=== PATIENT | female | born 1945 | race Caucasian/White ===

== ENCOUNTER → 2017-10-10 09:01 | Outpatient (CLI) | payer MEDICARE, SELFPAY ==
--- NOTE | 2017-10-10 | DI.MG.S_ITS ---
BILATERAL DIGITAL SCREENING MAMMOGRAM 3D/2D WITH CAD: 10/10/2017 CLINICAL: Routine screening. Comparison is made to exams dated: 10/08/2016 mammogram, 10/06/2015 mammogram, and 08/16/2014 mammogram - [facility]. The tissue of both breasts is heterogeneously dense. This may lower the sensitivity of mammography. Current study was also evaluated with a Computer Aided Detection (CAD) system. No significant masses, calcifications, or other findings are seen in either breast. There has been no significant interval change. IMPRESSION: NEGATIVE There is no mammographic evidence of malignancy. A 1 year screening mammogram is recommended. This exam was interpreted at Station ID: [id number]. NOTE: For mammograms, a report in lay terms will be sent to the patient. Approximately 15% of breast malignancies will not be visualized mammographically. In the management of a palpable breast mass, a negative mammogram must not discourage biopsy of a clinically suspicious lesion. Electronically Signed By: Jamal maza/grabiel:10/11/2017 08:40:02 copy to: Jed Caal letter sent: Normal Exam ACR BI-RADS Category 1: Negative 3341F
== END ==
PROVIDERS: PCP Family Medicine; Visit Provider Family Medicine
DX: Z12.31 Encounter for screening mammogram for malignant neoplasm of breast (principal)
CPT/HCPCS: 77063; 77067

== ENCOUNTER 2018-04-30 22:55 | Emergency (ER) | payer MEDICARE, SELFPAY ==
[2018-04-30 22:59] VITALS: BP 134/77; PULSE 64; RESP 15; TEMP 36.3; O2SAT 96; BMI 32.1
--- NOTE | 2018-05-01 00:46 | DI.CT.S_ITS ---
PROCEDURE: CT HEAD/BRAIN WO CON INDICATIONS: right sided face and arm tingling TECHNIQUE: Noncontrast 4.5 mm thick angled axial sections acquired from the foramen magnum to the vertex, with coronal and sagittal reformats. For radiation dose reduction, the following was used: automated exposure control, adjustment of mA and/or kV according to patient size. COMPARISON: None. FINDINGS: Image quality: Excellent. CSF spaces: Basal cisterns are patent. No extra-axial fluid collections. The ventricles are symmetric in size and shape. Brain: No intracranial bleeds or masses. There is cerebral volume loss for age, with resultant ventricular and sulcal prominence. There are periventricular and deep white matter chronic small vessel ischemic changes. There is intracranial internal carotid artery atherosclerosis. Skull and face: Calvarium and visualized facial bones appear intact, without suspicious lesions. Sinuses: Visualized sinuses and mastoids are clear. IMPRESSION: No acute intracranial process. Dictated by: Branden Mera M.D. on 05/01/2018 at 7:47 Approved by: Branden Mera M.D. on 05/01/2018 at 7:48
--- NOTE | 2018-05-01 00:52 | ED_ITS ---
HPI - Neck Pain/Injury General Chief Complaint: Neck Pain/Injury Stated Complaint: tingling right side of body and neck Time Seen by Provider: 05/01/18 00:36 Source: patient Mode of arrival: ambulatory Limitations: no limitations History of Present Illness HPI Narrative: patient is a 72-year-old female presents with right-sided neck discomfort and right arm tingling. She says she did shovel snow earlier in the day but does not remember injuring herself. This evening she was watching TV and at around 9 or 930 she started having tingling in her right arm and felt like her neck was weird. She had some tingling along the right side of her face as well. No arm weakness is no facial droop or difficulty speaking. She says the symptoms have resolved but she sometimes still feels like a tingling and burning sensation in her right arm. No history of TIA or CVA in the past. pain is not reproducible with movement. Related Data Home Medications Medication Instructions Recorded Confirmed ACETAMINOPHEN (#TYLENOL ARTHRITIS) 1,300 mg PO BID #0 04/11/11 01/27/18 ASPIRIN (#ASPIR 81) 81 mg PO Q DAY #0 04/11/11 01/27/18 CA PANTOTHENATE/FOLIC ACID/VIT 1 tab PO Q DAY #0 04/11/11 01/27/18 (MULTIVITAMIN) LOVASTATIN (#MEVACOR) 10 mg PO QDAY #0 04/11/11 01/27/18 [VITAMIN D] Q DAY #0 04/11/11 01/27/18 lisinopril 10 mg PO Q DAY #0 04/19/11 01/27/18 Previous Rx's Medication Instructions Recorded estradiol [Estrace] 1 mg PO Q DAY #90 tab 02/05/17 [PROGESTERONE] 50 mg PO Q DAY #90 06/06/17 Allergies Allergy/AdvReac Type Severity Reaction Status Date / Time adhesive Allergy Unknown Verified 04/30/18 22:59 hydrocodone Allergy Unknown Verified 04/30/18 22:59 morphine Allergy Unknown Verified 04/30/18 22:59 naproxen Allergy Unknown Verified 04/30/18 22:59 thimerosal Allergy Unknown Verified 04/30/18 22:59 oxycodone AdvReac Mild NAUSEA, Verified 04/30/18 22:59 DIZZINESS Review of Systems Review of Systems ROS Unobtainable: All systems reviewed & are unremarkable except as noted in HPI and below Constitutional Denies chills, Denies fever(s), Denies lethargy and Denies weakness Eyes Denies change in vision, Denies eye discharge, Denies irritation and Denies loss of vision ENT Ears, Nose, Mouth, and Throat: Denies change in voice, Denies vertigo, Denies dizziness, Reports neck pain and Denies sore throat Cardiovascular Denies chest pain, Denies irregular heart rhythm, Denies lightheadedness, Denies palpitations, Denies dyspnea, Denies dyspnea on exertion and Denies orthopnea Respiratory Denies cough, Denies dyspnea, Denies dyspnea on exertion and Denies wheezing Gastrointestinal Gastrointestinal: Denies abdominal pain, Denies change in bowel habits, Denies diarrhea, Denies nausea and Denies vomiting Musculoskeletal Reports as per HPI, Denies back pain, Reports neck pain, Reports numbness, Reports radiating pain into limb ( right armright arm) and Reports tingling Integumentary/Breasts Denies pruritus, Denies erythema, Denies rash and Denies wounds Neurologic Denies vertigo, Denies dizziness, Denies loss of vision, Reports numbness, Reports tingling and Denies weakness Endocrine Denies palpitations Allergic/Immunologic Denies wheezing [facility] Medical History Arthritis (Chronic) Asthma (Chronic) GERD (gastroesophageal reflux disease) (Chronic) Hayfever (Chronic) Scoliosis (Chronic) Chicken pox (Resolved) Measles (Resolved) Mumps (Resolved) Surgical History Anesthesia (Resolved) History of arthroscopic knee surgery (Resolved) History of carpal tunnel repair (Resolved) History of colonoscopy (Resolved 04/26/06) History of hip replacement (Resolved 2012) History of knee replacement (Resolved 2002) History of left cataract surgery (Resolved 01/27/14) History of right cataract surgery (Resolved 02/03/14) Status post breast biopsy (Resolved) Status post bunionectomy (Resolved 2008) Status post hammer toe correction (Resolved 05/11/02) Status post rotator cuff repair (Resolved 2012) Social History Smoking Status: Former smoker Social History Smoking Status: Former smoker Exam Initial Vital Signs Initial Vital Signs: Vital Signs Temperature 97.4 F L 04/30/18 22:59 Pulse Rate 64 04/30/18 22:59 Respiratory Rate 15 04/30/18 22:59 Blood Pressure 134/77 04/30/18 22:59 Pulse Oximetry 96 04/30/18 22:59 GENERAL: Alert well-appearing female sitting in gurney no acute distress HEENT: Head atraumatic,EOMI, pupils reactive, face symmetric, NECK: no vertebral tenderness no is paraspinal muscle tenderness. Full range of motion of neck. Pain is not reproducible with palpation or movement. CARDIOVASCULAR: Regular rate and rhythm without murmurs, rubs or gallops. RESPIRATORY: Breath sounds equal bilaterally, no wheezes rales or rhonchi. ABDOMEN: Soft, nontender. Normoactive bowel sounds all 4 quadrants. No guarding or rebound. EXTREMITIES: Normal range of motion, no clubbing or edema. Neurovascularly intact NEUROLOGICAL: Alert and oriented x4.Normal gait and speech. Cranial nerves II through XII grossly intact. Good vgexmc-gf-vupl, good otjs-mh-stro, strength equal bilaterally, no dysarthria or aphasia, sensation in tact to soft touch bilaterally, no visual changes, no facial droop SKIN: Warm, dry, no laceration, no petechiae, no rashes or lesions. Scores NIH Stroke Scale Level of Conciousness: Alert, keenly responsive Ask month/age: Answers both questions correctly. Open/close eyes, close hand: Performs both tasks correctly Best gaze horizontal: Normal Visual metz: No visual loss Facial palsy: Normal symetrical movement Left arm drift: No drift for full 10 sec Right arm drift: No drift for full 10 sec Left leg drift: No drift for full 10 sec Right leg drift: No drift for full 10 sec Limb ataxia: Absent Sensory on face/arms/legs: Normal, no sensory loss Best language: No aphasia, normal Dysarthria: Normal Extinction or inattention: No abnormality Total NIH Stroke scale score: 0 Course Orders Ordered: ED Orders 05/01/18 00:46 CT head/brain wo con Stat Complete Blood Count AUTO DIFF Stat Comprehensive Metabolic Panel Stat Troponin & CK Cardiac Panel Stat EKG-12 Lead Stat Vital Signs - 8 hr 04/30/18 22:59 05/01/18 01:58 Temperature 97.4 F L Pulse Rate 64 76 Respiratory Rate 15 20 Blood Pressure 134/77 164/64 H Pulse Oximetry 96 98 MDM - Neck Pain/Injury Lab Data Attestation: I reviewed the patient's lab results. Result diagrams: 05/01/18 00:46 05/01/18 00:46 Lab Results 05/01/18 05/01/18 Range/Units 00:46 00:46 WBC 4.9 (4.5-11.0) X10^3/uL RBC 4.37 (4.0-5.2) X10^6/uL Hgb 13.7 (12.0-16.0) g/dL Hct 40.8 (36-46) % MCV 93.5 (80-100) fL MCH 31.4 (26-34) PG MCHC 33.6 (30-36) % RDW 13.9 (11.6-14.8) % Plt Count 180 (150-400) X10^3/uL Neut % (Auto) 57.2 (50-75) % Lymph % (Auto) 23.5 L (25-40) % [place] % (Auto) 14.1 H (3-14) % Eos % (Auto) 3.7 (2-4) % Baso % (Auto) 1.5 (0-2) % Neut # (Auto) 2800 (3953-2599) /uL Lymph # (Auto) 1100 (6130-9055) /uL [place] # (Auto) 700 (0-900) /uL Eos # (Auto) 200 (0-450) /uL Baso # (Auto) 100 (0-100) /uL Sodium 141 (137-145) mmol/L Potassium 4.1 (3.4-5.1) mmol/L Chloride 108 H (98-107) mmol/L Carbon Dioxide 24 (22-32) mmol/L BUN 15 (7-17) mg/dL Creatinine 0.80 (0.52-1.04) mg/dL Estimated GFR > 60.0 (>60) mL/min BUN/Creatinine Ratio 18.8 (6-22) Glucose 118 H (80-110) mg/dL Calcium 9.1 (8.4-10.2) mg/dL Total Bilirubin 0.6 (0.2-1.3) mg/dL AST 26 (14-36) IU/L ALT 33 (9-52) IU/L Alkaline Phosphatase 60 (38-126) U/L Total Creatine Kinase 168 H (30-135) U/L CK-MB (CK-2) 1.88 (<2.37) ng/mL CK-MB (CK-2) Rel Index 1.1 L (1.5-5.0) % Troponin I < 0.012 (0.01-0.034) ng/mL Total Protein 7.6 (6.3-8.2) g/dL Albumin 4.1 (3.5-5.0) g/dL Globulin 3.5 (1.7-4.1) g/dL Albumin/Globulin Ratio 1.2 (1.0-2.8) Imaging Data CT scan - head: 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 It does sound more like neuropathy. She really has no focal deficits or weakness and right side. Of blood work and head CT are reassuring. Discussed results with patient. At this time follow up with PCP. Discharge Plan Departure Patient Disposition: Home Clinical Impression: Peripheral neuropathy Qualifiers: Peripheral neuropathy type: polyneuropathy, unspecified Qualified Code(s): G62.9 - Polyneuropathy, unspecified Discharge Date/Time: 05/01/18 01:59 Interventions: ED Discharge Assessment Last Done: 05/01/18 01:58 Instructions: Peripheral Neuropathy Activity Restrictions/Additional Instructions: *You have been diagnosed with peripheral neuropathy *What to do: at this time symptoms are consistent with a nerve problem. Possibly from over working in hurting neck.. Increase activity as tolerated. may require further testing with her primary doctor *Continue to take medications as directed *Follow up with your primary care provider in 2-3 days *Return to ER if you should have weakness, facial droop difficulty speaking vision changes or any new, worsening or concerning symptoms Prescriptions: No Action CA PANTOTHENATE/FOLIC ACID/VIT (MULTIVITAMIN) 1 tab PO Q DAY Qty: 0 RF: 0 ACETAMINOPHEN (#TYLENOL ARTHRITIS) 1,300 mg PO BID Qty: 0 RF: 0 ASPIRIN (#ASPIR 81) 81 mg PO Q DAY Qty: 0 RF: 0 LOVASTATIN (#MEVACOR) 10 mg PO QDAY Qty: 0 RF: 0 [VITAMIN D] Q DAY Qty: 0 RF: 0 lisinopril 10 MG tablet 10 mg PO Q DAY Qty: 0 RF: 0 estradiol [Estrace] 1 MG tablet 1 mg PO Q DAY Qty: 90 RF: 1 [PROGESTERONE] 50 mg PO Q DAY Qty: 90 RF: 3 Referrals: Beau Iniguez MD [Primary Care Provider] -
[2018-05-01 01:02] LABS: Add Manual Diff / Slide Review NO; Basophils Absolute Auto 100 /uL (0-100); Basophils Percent Auto 1.5 % (0-2); Eosinophils Absolute Auto 200 /uL (0-450); Eosinophils Percent Auto 3.7 % (2-4); Hematocrit 40.8 % (36-46); Hemoglobin 13.7 g/dL (12.0-16.0); Lymphocytes Absolute Auto 1100 /uL (1100-4500); Lymphocytes Percent Auto 23.5 % (25-40); Mean Corpuscular HGB Conc 33.6 % (30-36); Mean Corpuscular Hemoglobin 31.4 PG (26-34); Mean Corpuscular Volume 93.5 fL (80-100); Monocytes Absolute Auto 700 /uL (0-900); Monocytes Percent Auto 14.1 % (3-14); Neutrophils Absolute Auto 2800 /uL (1500-7000); Neutrophils Percent Auto 57.2 % (50-75); Platelet Count 180 X10^3/uL (150-400); Red Blood Cell Count 4.37 X10^6/uL (4.0-5.2); Red Cell Distribution Width 13.9 % (11.6-14.8); White Blood Cell Count 4.9 X10^3/uL (4.5-11.0)
[2018-05-01 01:09] LABS: Alanine Aminotransferase 33 IU/L (9-52); Albumin 4.1 g/dL (3.5-5.0); Albumin Globulin Ratio 1.2 (1.0-2.8); Alkaline Phosphatase 60 U/L (38-126); Aspartate Aminotransferase 26 IU/L (14-36); BUN Creatinine Ratio 18.8 (6-22); Bilirubin Total 0.6 mg/dL (0.2-1.3); Blood Urea Nitrogen 15 mg/dL (7-17); Calcium 9.1 mg/dL (8.4-10.2); Carbon Dioxide 24 mmol/L (22-32); Chloride 108 mmol/L (98-107); Creatine Kinase 168 U/L (30-135); Estimated Glomerular Filt Rate > 60.0 mL/min (>60); Globulin 3.5 g/dL (1.7-4.1); Glucose 118 mg/dL (80-110); HEMOLYSIS < 15 (0-50); Potassium 4.1 mmol/L (3.4-5.1); Sodium 141 mmol/L (137-145); Total Protein 7.6 g/dL (6.3-8.2)
[2018-05-01 01:21] LABS: Troponin I < 0.012 ng/mL (0.01-0.034)
[2018-05-01 01:25] LABS: CKMB % Relative Index 1.1 % (1.5-5.0); Creatine Kinase MB 1.88 ng/mL (<2.37)
[2018-05-01 01:58] VITALS: BP 164/64; PULSE 76; RESP 20; O2SAT 98
--- NOTE | 2018-05-01 02:28 | PC.NURSE ---
HER DISCHARGE VITALS WERE ENTERED WRONG BY ME.THE CORRECT VITALS WERE B/P126/70,HR 54,RR 20,SAO2 96 PER CENT ON RA.
== END 2018-05-01 01:59 | disposition home or self-care (01) ==
PROVIDERS: Emergency Provider Emergency Medicine; PCP Family Medicine
DX: G62.9 Polyneuropathy, unspecified (principal)
CPT/HCPCS: 36591; 70450; 80053; 82550; 82553; 84484; 85025; 93005; 99283; 99285

== ENCOUNTER → 2018-10-14 10:32 | Outpatient (CLI) | payer MEDICARE, SELFPAY ==
--- NOTE | 2018-10-14 | DI.MG.S_ITS ---
BILATERAL DIGITAL SCREENING MAMMOGRAM 3D/2D WITH CAD: 10/14/2018 CLINICAL: Routine screening. Comparison is made to exams dated: 10/10/2017 mammogram, 10/08/2016 mammogram, and 10/06/2015 mammogram - [facility]. The tissue of both breasts is heterogeneously dense. This may lower the sensitivity of mammography. Current study was also evaluated with a Computer Aided Detection (CAD) system. No significant masses, calcifications, or other findings are seen in either breast. There has been no significant interval change. IMPRESSION: NEGATIVE There is no mammographic evidence of malignancy. A 1 year screening mammogram is recommended. This exam was interpreted at Station ID: [id number]. NOTE: For mammograms, a report in lay terms will be sent to the patient. Approximately 15% of breast malignancies will not be visualized mammographically. In the management of a palpable breast mass, a negative mammogram must not discourage biopsy of a clinically suspicious lesion. Electronically Signed By: Juliane almendarez/grabiel:10/14/2018 12:52:13 copy to: Jed Caal letter sent: Normal Exam ACR BI-RADS Category 1: Negative 3341F
== END ==
PROVIDERS: PCP Family Medicine; Visit Provider Family Medicine
DX: Z12.31 Encounter for screening mammogram for malignant neoplasm of breast (principal)
CPT/HCPCS: 77063; 77067

== ENCOUNTER 2019-03-09 14:08 | Emergency (ER) | payer MEDICARE, SELFPAY ==
[2019-03-09 14:31] VITALS: BP 134/76; PULSE 69; RESP 14; TEMP 36.4; O2SAT 98
--- NOTE | 2019-03-09 14:40 | DI.RAD.S_ITS ---
PROCEDURE: XR WRIST LT MIN 3V INDICATIONS: atraumatic pain TECHNIQUE: 3 views of the wrist were acquired. COMPARISON: None. FINDINGS: Bones: No acute fracture or dislocation. There is severe loss of joint space, osteophytic spurring, and periarticular sclerosis at the 1st carpometacarpal joint. Scaphoid view: Scaphoid appears intact. Soft tissues: No suspicious soft tissue calcifications. IMPRESSION: Irregular appearance of the left 1st carpometacarpal joint most consistent with severe degenerative change, although infectious findings/osteomyelitis could appear similar. Correlation with point tenderness suggested. Dictated by: Edin Brink M.D. on 03/09/2019 at 14:52 Approved by: Edin Brink M.D. on 03/09/2019 at 15:00
[2019-03-09 16:40] VITALS: BP 143/65; PULSE 60; RESP 14; O2SAT 96
[2019-03-09] MEDS: KETOROLAC 60 MG/2 ML VIAL 30 MG IM (17:20)
--- NOTE | 2019-03-09 20:06 | ED_ITS ---
HPI - Extremity Problem <ROSA Pepper - Last Filed: 03/09/19 20:11> General Chief complaint: Extremity Problem,Nontraumatic Stated complaint: left wrist cant put pressure on it and hot to touc Time Seen by Provider: 03/09/19 16:39 Source: patient Mode of arrival: Ambulatory Limitations: no limitations History of Present Illness HPI Narrative: The patient is a 73-year-old female former smoker with history of arthritis who presents with a chief complaint of left wrist pain. She states that her wrist hurts just distal on the ulnar side. She states it started this morning. She denies any fevers nausea vomiting or diarrhea. She states that there was slight redness earlier, but nothing now. She has not taken anything for pain other than 400 mg of ibuprofen orally this morning. She denies any falls or trauma. She denies any injuries. Related Data Home Medications Medication Instructions Recorded Confirmed Vitamin D3 1 cap PO DAILY #0 04/11/11 03/09/19 acetaminophen [Tylenol Arthritis 1,300 mg PO QAM #0 04/11/11 03/09/19 Pain] multivitamin 1 tab PO DAILY #0 04/11/11 03/09/19 lisinopril 10 mg PO DAILY #0 04/19/11 03/09/19 estradiol [Estrace] 1 mg PO DAILY 03/09/19 03/09/19 fluticasone propionate [Flovent 2 puff INHALATION BID 03/09/19 03/09/19 HFA] lovastatin 40 mg PO DAILY 03/09/19 03/09/19 pantoprazole 40 mg PO Q OTHER DAY 03/09/19 03/09/19 Previous Rx's Medication Instructions Recorded [PROGESTERONE] 50 mg PO Q DAY #90 06/06/17 Allergies Allergy/AdvReac Type Severity Reaction Status Date / Time adhesive Allergy Unknown Verified 03/09/19 14:35 hydrocodone Allergy Unknown Verified 03/09/19 14:35 morphine Allergy Unknown Verified 03/09/19 14:35 naproxen Allergy Unknown Verified 03/09/19 14:35 thimerosal Allergy Unknown Verified 03/09/19 14:35 oxycodone AdvReac Mild NAUSEA, Verified 03/09/19 14:35 DIZZINESS Review of Systems <ROSA Pepper - Last Filed: 03/09/19 20:11> Review of Systems Narrative: GENERAL: Denies chills, fatigue, malaise, fever, sweats. HEENT: Denies sinus pain, ear pain, sore throat, difficulty swallowing, dizziness. RESPIRATORY: Denies dyspnea, cough, wheezing, hemoptysis, sputum. CARDIOVASCULAR: Denies chest pain, palpitations, orthopnea, edema, GASTROINTESTINAL: Denies nausea, vomiting, abdominal pain, diarrhea, c onstipation, melena. : Denies dysuria, frequency, incontinence, hematuria, urinary retention. MUSCULOSKELETAL: See HPI SKIN: See HPI NEUROLOGIC: Denies weakness, headache, numbness, change in speech, confusion, seizures, incoordination. PSYCHIATRIC: No concerning psychosocial issues. 12 point review of systems is negative except for those stated above Patient History <ROSA Pepper - Last Filed: 03/09/19 20:11> Medical History (Updated 03/09/19 @ 19:00 by ROSA Pepper) Arthritis (Chronic) Asthma (Chronic) Chicken pox (Resolved) GERD (gastroesophageal reflux disease) (Chronic) Hayfever (Chronic) Measles (Resolved) Mumps (Resolved) Scoliosis (Chronic) Uterine fibroid (Acute) Surgical History (Updated 01/23/18 @ 16:06 by Joanna Roa) Anesthesia (Resolved) History of arthroscopic knee surgery (Resolved) History of carpal tunnel repair (Resolved) History of colonoscopy (Resolved 04/26/06) History of hip replacement (Resolved 2012) History of knee replacement (Resolved 2002) History of left cataract surgery (Resolved 01/27/14) History of right cataract surgery (Resolved 02/03/14) Status post breast biopsy (Resolved) Status post bunionectomy (Resolved 2008) Status post hammer toe correction (Resolved 05/11/02) Status post rotator cuff repair (Resolved 2012) Social History Smoking Status: Former smoker Smoking Status: Former smoker alcohol intake frequency: holidays/special occasions only Substance Use Type: does not use Exam <ROSA Pepper - Last Filed: 03/09/19 20:11> Narrative Exam Narrative: General: Obese female in no acute distress HEAD: Atraumatic. Normocephalic. No temporal or scalp tenderness. EYES: Pupils equal round and reactive. Extraocular motions intact. No scleral icterus. No injection or drainage. ENT: Nose without bleeding, purulent drainage or septal hematoma. Throat without erythema, tonsillar hypertrophy or exudate. Uvula midline. Airway patent. NECK: Trachea midline. No JVD or lymphadenopathy. Supple, nontender, no meningeal signs. CARDIOVASCULAR: Regular rate and rhythm RESPIRATORY: No cough. No increased respiratory effort. No accessory muscle use. EXTREMITIES: Pain to palpation of ulnar aspect of left wrist. No snuffbox tenderness to palpation. Good strength left hand. Positive radial pulse left wrist. Able thumbs up, thumbs down, make a [place] with hands. Able to pronate and supinate left wrist. BACK: Nontender without deformity or crepitance. No flank tenderness. NEURO: AOx3. SKIN: No laceration abrasion erythema or ecchymosis noted over left wrist Initial Vital Signs Initial Vital Signs: Vital Signs Temperature 97.6 F 03/09/19 14:31 Pulse Rate 69 03/09/19 14:31 Respiratory Rate 14 03/09/19 14:31 Blood Pressure 134/76 03/09/19 14:31 Pulse Oximetry 98 03/09/19 14:31 <Alesha Duran DO - Last Filed: 03/11/19 07:14> Initial Vital Signs Initial Vital Signs: Vital Signs Temperature 97.6 F 03/09/19 14:31 Pulse Rate 69 03/09/19 14:31 Respiratory Rate 14 03/09/19 14:31 Blood Pressure 134/76 03/09/19 14:31 Pulse Oximetry 98 03/09/19 14:31 Course <ROSA Pepper - Last Filed: 03/09/19 20:11> Orders Ordered: Discontinued Medications Ketorolac Tromethamine (Toradol) 30 mg IM NOW ONE Stop: 03/09/19 17:15 Last Admin: 03/09/19 17:20 Dose: 30 mg Documented by: MATTHEW Vital Signs Vital signs: Vital Signs - 8 hr 03/09/19 14:31 03/09/19 16:40 Temperature 97.6 F Pulse Rate 69 60 Respiratory Rate 14 14 Blood Pressure 134/76 Blood Pressure [Right Arm] 143/65 H Pulse Oximetry 98 96 <DO Jessica Horan Last Filed: 03/11/19 07:14> Orders Ordered: Discontinued Medications Ketorolac Tromethamine (Toradol) 30 mg IM NOW ONE Stop: 03/09/19 17:15 Last Admin: 03/09/19 17:20 Dose: 30 mg Documented by: MATTHEW Vital Signs Vital signs: Vital Signs - 8 hr 03/09/19 14:31 03/09/19 16:40 Temperature 97.6 F Pulse Rate 69 60 Respiratory Rate 14 14 Blood Pressure 134/76 Blood Pressure [Right Arm] 143/65 H Pulse Oximetry 98 96 MDM - Extremity (Nontraumatic) <ROSA Pepper - Last Filed: 03/09/19 20:11> Imaging Data Extremity x-ray #1: Radiologist's Impression: [address] [address] XRay Report Signed Patient: Allie Lange JMR#: [id number] : 8Acct:[id number] Age/Sex: 73 / FDate of Service: 03/09/19 Loc: ED Accession Number: [id number] Procedure: XR wrist LT min 3V Ordering Provider: Tasneem Gaxiola PROCEDURE: XR WRIST LT MIN 3V INDICATIONS: atraumatic pain TECHNIQUE: 3 views of the wrist were acquired. COMPARISON: None. FINDINGS: Bones: No acute fracture or dislocation. There is severe loss of joint space, osteophytic spurring, and periarticular sclerosis at the 1st carpometacarpal joint. Scaphoid view: Scaphoid appears intact. Soft tissues: No suspicious soft tissue calcifications. IMPRESSION: Irregular appearance of the left 1st carpometacarpal joint most consistent with severe degenerative change, although infectious findings/osteomyelitis could appear similar. Correlation with point tenderness suggested. Dictated by: Edin Brink M.D. on 03/09/2019 at 14:52 Approved by: Edin Birnk M.D. on 03/09/2019 at 15:00 [facility] Narrative Medical decision making narrative: The patient is a 73-year-old female who presents with a chief complaint of wrist pain that is atraumatic. X-ray is concerning for degenerative changes. Radiology does raise concern about infectious findings/osteomyelitis, however she has no erythema, no fever, no signs of infection on exam so there is no clinical correlation. She was given Toradol in the emergency department. Encouraged rest ice compression elevation as well as [id number] medications as needed and able. Patient was placed in a brace. No questions or concerns upon discharge states understanding of return precautions as well as follow-up care. Discharge Plan Departure Patient Disposition: Home Clinical Impression: Acute wrist pain Qualifiers: Laterality: left Qualified Code(s): M25.532 - Pain in left wrist Discharge Date/Time: 03/09/19 19:04 Instructions: How To Perform RICE (Rest, Ice, Compress, Elevate), DI for Wrist Pain Activity Restrictions/Additional Instructions: As I discussed, your x-ray shows no acute fracture. This does not rule out a soft tissue injury such as a ligament or tendon injury. It is important that you follow up with primary care provider, especially if worsening or no improvement. There can be fractures that did not show up on initial x-ray. Your x-ray does show some degenerative changes and arthritic changes Please follow-up with primary care provider. I suggest rest ice compression elevation as well as [id number] pain medications as needed and able. Please monitor for fever, redness over the area signs of infection etcetera Prescriptions: No Action multivitamin Tablet 1 tab PO DAILY Qty: 0 RF: 0 acetaminophen [Tylenol Arthritis Pain] 650 mg Tablet Extended Release 1,300 mg PO QAM Qty: 0 RF: 0 Vitamin D3 1 cap PO DAILY Qty: 0 RF: 0 lisinopril 10 MG tablet 10 mg PO DAILY Qty: 0 RF: 0 [PROGESTERONE] 50 mg PO Q DAY Qty: 90 RF: 3 lovastatin 40 mg tablet 40 mg PO DAILY RF: 0 pantoprazole 40 mg tablet,delayed release (DR/EC) 40 mg PO Q OTHER DAY RF: 0 Flovent HFA 110 mcg/actuation HFA aerosol inhaler 2 puff INHALATION BID RF: 0 estradiol [Estrace] 1 MG tablet 1 mg PO DAILY RF: 0 Referrals: Beau Iniguez MD [Primary Care Provider] -
== END 2019-03-09 19:04 | disposition home or self-care (01) ==
PROVIDERS: Emergency Provider Nurse Practitioner Family; PCP Family Medicine
DX: M25.532 Pain in left wrist (principal)
CPT/HCPCS: 73110; 96372; 99281; 99283; J1885

== ENCOUNTER → 2019-10-29 08:13 | Outpatient (CLI) | payer MEDICARE, SELFPAY ==
--- NOTE | 2019-10-29 | DI.MG.S_ITS ---
BILATERAL DIGITAL SCREENING MAMMOGRAM 3D/2D WITH CAD: 10/29/2019 CLINICAL: Routine screening. Comparison is made to exams dated: 10/14/2018 mammogram, 10/10/2017 mammogram, 10/08/2016 mammogram, 10/06/2015 mammogram, 08/16/2014 mammogram, and 08/06/2013 mammogram - [facility]. The tissue of both breasts is extremely dense, which lowers the sensitivity of mammography. Current study was also evaluated with a Computer Aided Detection (CAD) system. No significant masses, calcifications, or other findings are seen in either breast. There has been no significant interval change. IMPRESSION: NEGATIVE There is no mammographic evidence of malignancy. A 1 year screening mammogram is recommended. This exam was interpreted at Station ID: [id number]. NOTE: For mammograms, a report in lay terms will be sent to the patient. Approximately 15% of breast malignancies will not be visualized mammographically. In the management of a palpable breast mass, a negative mammogram must not discourage biopsy of a clinically suspicious lesion. Electronically Signed By: Jack casas/grabiel:10/29/2019 09:01:24 copy to: DIONI LUIS letter sent: Normal Exam ACR BI-RADS Category 1: Negative 3341F
== END ==
PROVIDERS: PCP Family Medicine; Referring Provider Family Medicine
DX: Z12.31 Encounter for screening mammogram for malignant neoplasm of breast (principal)
CPT/HCPCS: 77063; 77067

== ENCOUNTER → 2020-10-31 11:15 | Outpatient (CLI) | payer MEDICARE, SELFPAY ==
--- NOTE | 2020-10-31 | DI.RAD.S_ITS ---
PROCEDURE: XR DEXA AXIAL SKELETON INDICATIONS: SCREENING Asymptomatic menopausal state COMPARISON: None. FINDINGS: This blank DEXA report has been sent in error by the PACS system. The correct and complete report will be forthcoming in 1-2 days. Thank you for your patience and understanding. Dictated by: Rachna Bajwa MD, PhD on 10/31/2020 at 12:09 Approved by: Rachna Bajwa MD, PhD on 10/31/2020 at 12:09
--- NOTE | 2020-10-31 | DI.MG.S_ITS ---
BILATERAL DIGITAL SCREENING MAMMOGRAM 3D/2D WITH CAD: 10/31/2020 CLINICAL: Routine screening. Comparison is made to exams dated: 10/29/2019 mammogram, 10/14/2018 mammogram, and 10/10/2017 mammogram - [facility]. The tissue of both breasts is heterogeneously dense. This may lower the sensitivity of mammography. Current study was also evaluated with a Computer Aided Detection (CAD) system. There are benign calcifications in both breasts. No significant masses, calcifications, or other findings are seen in either breast. There has been no significant interval change. IMPRESSION: BENIGN There is no mammographic evidence of malignancy. A 1 year screening mammogram is recommended. This exam was interpreted at Station ID: [id number]. NOTE: For mammograms, a report in lay terms will be sent to the patient. Approximately 15% of breast malignancies will not be visualized mammographically. In the management of a palpable breast mass, a negative mammogram must not discourage biopsy of a clinically suspicious lesion. Electronically Signed By: Boyn la/grabiel:10/31/2020 12:11:16 copy to: DIONI LUIS letter sent: Normal Exam ACR BI-RADS Category 2: Benign Finding(s) 3342F
== END ==
PROVIDERS: PCP Family Medicine; Referring Provider Family Medicine; Visit Provider Family Medicine
DX: Z12.31 Encounter for screening mammogram for malignant neoplasm of breast (principal); Z78.0 Asymptomatic menopausal state; Z87.891 Personal history of nicotine dependence
CPT/HCPCS: 77063; 77067; 77080; 77081

== ENCOUNTER → 2021-11-02 12:33 | Outpatient (CLI) | payer MEDICARE, SELFPAY ==
--- NOTE | 2021-11-02 12:34 | DI.MG.S_ITS ---
BILATERAL DIGITAL SCREENING MAMMOGRAM 3D/2D WITH CAD: 11/02/2021 CLINICAL: Routine screening. Comparison is made to exams dated: 10/31/2020 mammogram, 10/29/2019 mammogram, and 10/14/2018 mammogram - [facility]. The tissue of both breasts is heterogeneously dense. This may lower the sensitivity of mammography. Current study was also evaluated with a Computer Aided Detection (CAD) system. No significant masses, calcifications, or other findings are seen in either breast. There has been no significant interval change. IMPRESSION: NEGATIVE There is no mammographic evidence of malignancy. A 1 year screening mammogram is recommended. Based on the Tyrer Cuzick model (a risk assessment model) the patient's lifetime risk is 6.6% and her 10 year risk is 5.9%. According to the ACR, ACS, and NCCN guidelines, an annual breast MRI exam along with mammogram is recommended if the patient's lifetime risk is 20% or greater. This exam was interpreted at Station ID: [id number]. NOTE: For mammograms, a report in lay terms will be sent to the patient. Approximately 15% of breast malignancies will not be visualized mammographically. In the management of a palpable breast mass, a negative mammogram must not discourage biopsy of a clinically suspicious lesion. Electronically Signed By: Shyam merino/grabiel:11/02/2021 13:14:39 copy to: DIONI LUIS letter sent: Normal Exam ACR BI-RADS Category 1: Negative 3341F
== END ==
PROVIDERS: Family Provider Family Medicine; PCP Family Medicine; Referring Provider Family Medicine; Visit Provider Family Medicine
DX: Z12.31 Encounter for screening mammogram for malignant neoplasm of breast (principal)
CPT/HCPCS: 77063; 77067

== ENCOUNTER → 2022-11-12 08:18 | Outpatient (CLI) | payer MEDICARE, SELFPAY ==
--- NOTE | 2022-11-12 | DI.MG.S_ITS ---
BILATERAL DIGITAL SCREENING MAMMOGRAM 3D/2D WITH CAD: 11/12/2022 CLINICAL: Routine screening. Comparison is made to exams dated: 11/02/2021 mammogram, 10/29/2019 mammogram, 10/31/2020 mammogram, and 10/14/2018 mammogram - [facility]. Both breasts are heterogeneously dense, which may obscure small masses (category c / 51-75% glandular tissue). Current study was also evaluated with a Computer Aided Detection (CAD) system. No significant masses, calcifications, or other findings are seen in either breast. There has been no significant interval change. IMPRESSION: NEGATIVE There is no mammographic evidence of malignancy. A 1 year screening mammogram is recommended. Based on the Tyrer Cuzick model (a risk assessment model) the patient's lifetime risk is 6.1% and her 10 year risk is 6.1%. According to the ACR, ACS, and NCCN guidelines, an annual breast MRI exam along with mammogram is recommended if the patient's lifetime risk is 20% or greater. This exam was interpreted at Station ID: [id number]. NOTE: For mammograms, a report in lay terms will be sent to the patient. Approximately 15% of breast malignancies will not be visualized mammographically. In the management of a palpable breast mass, a negative mammogram must not discourage biopsy of a clinically suspicious lesion. Electronically Signed By: Jack casas/grabiel:11/12/2022 09:31:47 copy to: DIONI LUIS letter sent: Normal Exam ACR BI-RADS Category 1: Negative 3341F
== END ==
PROVIDERS: Family Provider Family Medicine; PCP Family Medicine; Referring Provider Family Medicine; Visit Provider Family Medicine
DX: Z12.31 Encounter for screening mammogram for malignant neoplasm of breast (principal)
CPT/HCPCS: 77063; 77067

== ENCOUNTER → 2023-11-21 08:18 | Outpatient (CLI) | payer MEDICARE, SELFPAY ==
--- NOTE | 2023-11-21 | DI.MG.S_ITS ---
BILATERAL DIGITAL SCREENING MAMMOGRAM 3D/2D WITH CAD: 11/21/2023 CLINICAL: Routine screening. Comparison is made to exams dated: 11/12/2022 mammogram, 11/02/2021 mammogram, and 10/31/2020 mammogram - [facility]. Both breasts are heterogeneously dense, which may obscure small masses (category c / 51-75% glandular tissue). Current study was also evaluated with a Computer Aided Detection (CAD) system. There are benign post operative findings in the left breast. No significant masses, calcifications, or other findings are seen in either breast. There has been no significant interval change. IMPRESSION: BENIGN There is no mammographic evidence of malignancy. A 1 year screening mammogram is recommended. Based on the Tyrer Cuzick model (a risk assessment model) the patient's lifetime risk is 5.6% and her 10 year risk is 0.0%. According to the ACR, ACS, and NCCN guidelines, an annual breast MRI exam along with mammogram is recommended if the patient's lifetime risk is 20% or greater. This exam was interpreted at Station ID: [id number]. NOTE: For mammograms, a report in lay terms will be sent to the patient. Approximately 15% of breast malignancies will not be visualized mammographically. In the management of a palpable breast mass, a negative mammogram must not discourage biopsy of a clinically suspicious lesion. Electronically Signed By: Shyam merino/grabiel:11/21/2023 09:53:26 copy to: DIONI LUIS letter sent: Normal Exam ACR BI-RADS Category 2: Benign Finding(s) 3342F
== END ==
PROVIDERS: Family Provider Family Medicine; PCP Family Medicine; Referring Provider Family Medicine; Visit Provider Family Medicine
DX: Z12.31 Encounter for screening mammogram for malignant neoplasm of breast (principal); R92.333 Mammographic heterogeneous density, bilateral breasts
CPT/HCPCS: 77063; 77067

== ENCOUNTER → 2024-01-10 11:59 | Outpatient (CLI) | payer MEDICARE, SELFPAY ==
[2024-01-10 13:33] LABS: Add Manual Diff / Slide Review NO; Basophils Absolute Auto 100 /uL (0-100); Basophils Percent Auto 1.2 % (0-2); Eosinophils Absolute Auto 100 /uL (0-450); Hematocrit 43.2 % (36-46); Hemoglobin 14.3 g/dL (12.0-16.0); Lymphocytes Absolute Auto 1200 /uL (1100-4500); Lymphocytes Percent Auto 26.7 % (25-40); Mean Corpuscular HGB Conc 33.2 % (30-36); Mean Corpuscular Hemoglobin 32.2 PG (26-34); Monocytes Absolute Auto 500 /uL (0-900); Monocytes Percent Auto 10.7 % (3-14); Neutrophils Absolute Auto 2700 /uL (1500-7000); Neutrophils Percent Auto 59.4 % (50-75); Platelet Count 197 X10^3/uL (150-400); Red Blood Cell Count 4.45 X10^6/uL (4.0-5.2); White Blood Cell Count 4.5 X10^3/uL (4.5-11.0)
[2024-01-10 14:21] LABS: Alanine Aminotransferase 20 IU/L (<35); Albumin 4.2 g/dL (3.5-5.0); Albumin Globulin Ratio 1.4 (1.0-2.8); Alkaline Phosphatase 57 U/L (38-126); Aspartate Aminotransferase 24 IU/L (14-36); BUN Creatinine Ratio 25.7 (6-22); Blood Urea Nitrogen 18 mg/dL (7-17); Calcium 9.4 mg/dL (8.4-10.2); Carbon Dioxide 25 mmol/L (22-32); Chloride 107 mmol/L (98-107); Cholesterol 152 mg/dL (140-199); Estimated Glomerular Filt Rate > 60 mL/min (>60); Globulin 2.9 g/dL (1.7-4.1); Glucose 89 mg/dL (80-110); HDL Cholesterol 54 mg/dL (40-60); HEMOLYSIS < 15 (0-50); LDL Cholesterol Calculated 88 mg/dL (<100); Potassium 4.3 mmol/L (3.4-5.1); Sodium 140 mmol/L (137-145); Total Protein 7.1 g/dL (6.3-8.2); Triglycerides 49 mg/dL (35-150)
[2024-01-10 14:49] LABS: TSH w/ Reflex to FT4 0.92 uIU/mL (0.47-4.68)
== END ==
PROVIDERS: Family Provider Family Medicine; PCP Family Medicine; Referring Provider Family Medicine; Visit Provider Family Medicine
DX: I10 Essential (primary) hypertension (principal); K21.9 Gastro-esophageal reflux disease without esophagitis; E78.00 Pure hypercholesterolemia, unspecified; R41.89 Other symptoms and signs involving cognitive functions and awareness
CPT/HCPCS: 36415; 80053; 80061; 84443; 85025

== ENCOUNTER → 2024-05-26 13:59 | Outpatient (CLI) | payer MEDICARE, SELFPAY ==
[2024-05-26 14:54] LABS: Add Manual Diff / Slide Review NO; Basophils Absolute Auto 100 /uL (0-100); Basophils Percent Auto 1.2 % (0-2); Eosinophils Absolute Auto 100 /uL (0-450); Eosinophils Percent Auto 2.1 % (2-4); Hematocrit 46.2 % (36-46); Hemoglobin 15.5 g/dL (12.0-16.0); Lymphocytes Absolute Auto 900 /uL (1100-4500); Lymphocytes Percent Auto 19.4 % (25-40); Mean Corpuscular HGB Conc 33.6 % (30-36); Mean Corpuscular Hemoglobin 31.9 PG (26-34); Mean Corpuscular Volume 95.1 fL (80-100); Monocytes Absolute Auto 600 /uL (0-900); Monocytes Percent Auto 13.5 % (3-14); Neutrophils Absolute Auto 3100 /uL (1500-7000); Neutrophils Percent Auto 63.8 % (50-75); Platelet Count 194 X10^3/uL (150-400); Red Blood Cell Count 4.86 X10^6/uL (4.0-5.2); White Blood Cell Count 4.8 X10^3/uL (4.5-11.0)
[2024-05-26 15:28] LABS: Alanine Aminotransferase 25 IU/L (<35); Albumin 4.8 g/dL (3.5-5.0); Albumin Globulin Ratio 1.4 (1.0-2.8); Alkaline Phosphatase 54 U/L (38-126); Aspartate Aminotransferase 30 IU/L (14-36); BUN Creatinine Ratio 23.9 (6-22); Bilirubin Total 1.2 mg/dL (0.2-1.3); Blood Urea Nitrogen 17 mg/dL (7-17); Calcium 9.8 mg/dL (8.4-10.2); Carbon Dioxide 27 mmol/L (22-32); Chloride 104 mmol/L (98-107); Cholesterol 194 mg/dL (140-199); Estimated Glomerular Filt Rate > 60 mL/min (>60); Globulin 3.5 g/dL (1.7-4.1); Glucose 115 mg/dL (80-110); HDL Cholesterol 56 mg/dL (40-60); HEMOLYSIS < 15 (0-50); LDL Cholesterol Calculated 115 mg/dL (<100); Potassium 4.2 mmol/L (3.4-5.1); Sodium 141 mmol/L (137-145); Total Protein 8.3 g/dL (6.3-8.2); Triglycerides 116 mg/dL (35-150)
[2024-05-26 15:56] LABS: TSH w/ Reflex to FT4 0.86 uIU/mL (0.47-4.68)
== END ==
PROVIDERS: Family Provider Family Medicine; PCP Family Medicine; Referring Provider Family Medicine; Visit Provider Family Medicine
DX: E78.5 Hyperlipidemia, unspecified (principal); I10 Essential (primary) hypertension; K21.9 Gastro-esophageal reflux disease without esophagitis
CPT/HCPCS: 36415; 80053; 80061; 84443; 85025

== ENCOUNTER → 2024-05-28 12:38 | Outpatient (CLI) | payer MEDICARE, SELFPAY ==
[2024-05-28 13:08] LABS: Appearance Urine UA CLEAR; Bilirubin Urine UA NEGATIVE (NEGATIVE); Color Urine UA YELLOW; Glucose Urine UA NEGATIVE (Negative); Ketones Urine UA TRACE (NEGATIVE); Leukocyte Esterase Urine UA TRACE (NEGATIVE); Nitrite Urine UA NEGATIVE (Negative); Occult Blood Urine UA NEGATIVE (Negative); Protein Urine UA NEGATIVE (Negative); Specific Gravity Urine UA 1.025 (1.000-1.035); Urobilinogen Urine UA 0.2 E.U./dL (0.2)
[2024-05-28 13:25] LABS: Bacteria Urine Occasional (0-1); Culture Indicated Urine Cult Not Indicated; RBC Urine None Seen (0-5/HPF); Squamous Epithelial Cell Urine 0-1 /HPF (0-5/HPF); Transitional Epi Cells Urine 1-5/HPF (0-5/HPF); Urine Volume 10mL (spun); WBC Urine 1-5/HPF (0-5/HPF)
== END ==
PROVIDERS: Family Provider Family Medicine; PCP Family Medicine; Visit Provider Urology
DX: R39.9 Unspecified symptoms and signs involving the genitourinary system (principal)
CPT/HCPCS: 81001

== ENCOUNTER → 2024-06-03 13:09 | Outpatient (CLI) | payer MEDICARE, SELFPAY ==
[2024-06-03 13:17] LABS: Appearance Urine UA CLEAR; Bilirubin Urine UA NEGATIVE (NEGATIVE); Color Urine UA YELLOW; Glucose Urine UA NEGATIVE (Negative); Ketones Urine UA NEGATIVE (NEGATIVE); Leukocyte Esterase Urine UA NEGATIVE (NEGATIVE); Nitrite Urine UA NEGATIVE (Negative); Occult Blood Urine UA NEGATIVE (Negative); Protein Urine UA NEGATIVE (Negative); Urobilinogen Urine UA 0.2 E.U./dL (0.2)
[2024-06-03 13:19] LABS: Urine Volume 10mL (spun); pH Urine UA 5.5 (4.5-8.0)
[2024-06-03 13:20] LABS: Bacteria Urine None Seen; Culture Indicated Urine Cult Not Indicated; RBC Urine None Seen (0-5/HPF); Squamous Epithelial Cell Urine None Seen (0-5/HPF); WBC Urine None Seen (0-5/HPF)
== END ==
PROVIDERS: Family Provider Family Medicine; PCP Family Medicine; Visit Provider Urology
DX: N95.2 Postmenopausal atrophic vaginitis (principal); R39.15 Urgency of urination; R39.16 Straining to void; R39.9 Unspecified symptoms and signs involving the genitourinary system
CPT/HCPCS: 51798; 52000; 81001; 81002

== ENCOUNTER 2024-09-13 05:44 | Emergency (ER) | payer MEDICARE, SELFPAY ==
[2024-09-13 05:57] VITALS: BP 141/77; PULSE 69; RESP 18; TEMP 36.8; O2SAT 98; BMI 29.0
--- NOTE | 2024-09-13 06:16 | ED.UPPEXIN ---
HPI - Extremity Injury (Upper) General Chief Complaint: Extremity Problem,Nontraumatic Stated Complaint: L Arm Pain Time Seen by Provider: 09/13/24 05:50 Source: patient Mode of arrival: Ambulatory History of Present Illness HPI narrative: 78-year-old female history of arthritis, hypertension dyslipidemia presents with left upper extremity pain specifically the elbow region this morning unable to to move it in all directions full extension or flexion. Patient denies chest pain shortness breath neck pain numbness tingling down the the arm, or recent heavy lifting or repetitive use recently. She is right-handed dominant. Patient has not taken anything prior to arrival here. Other than what is stated 14 point review of system is negative. Related Data Home Medications ?Medication ?Instructions ?Recorded ?Confirmed Vitamin D3 1 cap PO DAILY ##0 04/11/11 09/13/24 acetaminophen 650 mg 1,300 mg PO QAM ##0 04/11/11 09/13/24 tablet,extended release (Tylenol Arthritis Pain) multivitamin 1 tab PO DAILY ##0 04/11/11 09/13/24 fluticasone propionate 110 2 puff inhalation BID 03/09/19 09/13/24 mcg/actuation HFA aerosol inhaler (Flovent HFA) oxybutynin chloride 5 mg tablet 5 mg PO DAILY 05/28/24 09/13/24 Previous Rx's ?Medication ?Instructions ?Recorded donepezil 5 mg tablet (Aricept) 5 mg PO DAILY #90 tabs 05/26/24 lisinopril 10 mg tablet 10 mg PO DAILY #90 tabs 05/26/24 lovastatin 40 mg tablet 40 mg PO DAILY #90 tabs 05/26/24 prednisone 20 mg tablet 20 mg PO DAILY #5 tabs 09/13/24 tramadol 50 mg tablet 50 mg PO Q8H PRN pain #20 tabs 09/13/24 Allergies Allergy/AdvReac Type Severity Reaction Status Date / Time adhesive Allergy Unknown Verified 09/13/24 05:56 hydrocodone Allergy Unknown Verified 09/13/24 05:56 morphine Allergy Unknown Verified 09/13/24 05:56 naproxen Allergy Unknown Verified 09/13/24 05:56 thimerosal Allergy Unknown Verified 09/13/24 05:56 oxycodone AdvReac Mild NAUSEA, Verified 09/13/24 05:56 DIZZINESS Review of Systems Review of Systems ROS Unobtainable: All systems reviewed & are unremarkable except as noted in HPI and below Patient History Medical History Vulvar irritation Atrophic vaginitis Cystitis Hyperglycemia Lower urinary tract symptoms Urinary urgency Cognitive impairment Preventative health care Hormone replacement therapy Hyperlipidemia Hypertension Alteration in cognition Uterine fibroid Arthritis GERD (gastroesophageal reflux disease) Chicken pox Measles Mumps Scoliosis Hayfever Asthma Surgical History History of arthroscopic knee surgery History of right cataract surgery (02/03/14) History of left cataract surgery (01/27/14) History of colonoscopy (04/26/06) Anesthesia Status post rotator cuff repair (2012) History of hip replacement (2012) Status post hammer toe correction (05/11/02) Status post bunionectomy (2008) History of knee replacement (2002) Status post breast biopsy History of carpal tunnel repair Social History marital status: unmarried,single Smoking Status: Former smoker alcohol intake: current caffeine: Yes Smoking Status: Former smoker alcohol intake frequency: holidays/special occasions only Exam Narrative Exam Narrative: GENERAL: [78] year old patient appears stated age. Well-developed patient, in mild distress. HEAD: Atraumatic. Normocephalic. EYES: Pupils equal round and reactive. Extraocular motions intact. No scleral icterus. No injection or drainage. NECK: Trachea midline. Non tender EXTREMITIES: Left elbow specifically lateral epicondyle tender to palpate no redness or warmth, motor sensory intact +2 radial pulse, decreased range of motion in flexion extension supination and pronation BACK: Nontender without deformity or crepitance. No flank tenderness. NEURO: AOx3. SKIN: No rash or erythema of visible areas Initial Vital Signs Initial Vital Signs: Vital Signs Temperature 98.2 F 09/13/24 05:57 Pulse Rate 69 09/13/24 05:57 Respiratory Rate 18 09/13/24 05:57 Blood Pressure 141/77 H 09/13/24 05:57 Pulse Oximetry 98 09/13/24 05:57 Oxygen Delivery Method Room Air 09/13/24 05:57 Course Vital Signs Vital signs: Vital Signs - 8 hr 09/13/24 05:57 Temperature 98.2 F Pulse Rate 69 Respiratory Rate 18 Blood Pressure 141/77 H Pulse Oximetry 98 Oxygen Delivery Method Room Air MDM - Extremity Injury (Upper) MDM Narrative Medical decision making narrative: Vital signs, nurse triage note, medication list, previous ER visits, and all imaging studies reviewed. Patient given [place] here. X-ray reviewed. Patient will be discharged on [place], prednisone, and wear band around forearm. Differential diagnosis includes fracture dislocation epicondylitis arthritis septic joint. Discharge Plan Departure Patient Disposition: Home Clinical Impression: Epicondylitis, lateral Qualifiers: Laterality: left Qualified Code(s): M77.12 - Lateral epicondylitis, left elbow Instructions: DI for Lateral Epicondylitis (Tennis Elbow) Activity Restrictions/Additional Instructions: Return with new or worsening symptoms. Take your medicines as directed. Wear band as discussed. Follow up PCP in 1 week if no improvement in symptoms. Prescriptions: New tramadol 50 mg tablet 50 mg PO Q8H PRN (Reason: pain) Qty: 20 0RF prednisone 20 mg tablet 20 mg PO DAILY Qty: 5 0RF No Action multivitamin Tablet 1 tab PO DAILY Qty: 0 acetaminophen [Tylenol Arthritis Pain] 650 mg Tablet Extended Release 1,300 mg PO QAM Qty: 0 Vitamin D3 1 cap PO DAILY Qty: 0 donepezil [Aricept] 5 mg tablet 5 mg PO DAILY Qty: 90 3RF lisinopril 10 mg tablet 10 mg PO DAILY Qty: 90 3RF lovastatin 40 mg tablet 40 mg PO DAILY Qty: 90 3RF fluticasone propionate [Flovent HFA] 110 mcg/actuation HFA aerosol inhaler 2 puff INHALATION BID Patient Comments: patient states usually takes 2 puffs in the am oxybutynin chloride 5 mg tablet 5 mg PO DAILY Referrals: Jitendra Bravo DO [Primary Care Provider, Family Practice] Stand Alone Forms: Patient Portal/API
--- NOTE | 2024-09-13 06:22 | DI.RAD.S_ITS ---
PROCEDURE: XR ELBOW LT MIN 3V INDICATIONS: Lt elbow pain, nontrauma TECHNIQUE: 3 views of the elbow were acquired. COMPARISON: None. FINDINGS AND IMPRESSION: Moderate arthritic changes of the elbow, with periarticular bone fragments which may be from prior trauma or degenerative sequelae. No significant joint effusion. No acute displaced fracture lucency or dislocation. Suspected chondrocalcinosis. If there is high concern for further derangement, consider MRI evaluation. No significant changes from the preliminary report. Dictated by: Shyam Darden M.D. on 09/13/2024 at 8:11 Approved by: Shyam Darden M.D. on 09/13/2024 at 8:12
[2024-09-13] MEDS: HYDROCODONE/ACET 5/325 TABLET 1 TAB PO (06:31)
[2024-09-13 07:42] VITALS: BP 140/64; PULSE 74; RESP 16; O2SAT 100
== END 2024-09-13 07:43 | disposition home or self-care (01) ==
PROVIDERS: Emergency Provider Family Medicine; Family Provider Family Medicine; PCP Family Medicine
DX: M77.12 Lateral epicondylitis, left elbow (principal)
CPT/HCPCS: 73080; 99283

== ENCOUNTER → 2024-11-20 07:49 | Outpatient (CLI) | payer MEDICARE, SELFPAY ==
--- NOTE | 2024-11-20 07:50 | DI.MG.S_ITS ---
MM screening mammo BI: 11/20/2024. BI-RADS: 1 CLINICAL: 79-year old female for bilateral screening mammogram. Tyrer-Cuzick lifetime risk of 5.1%. No personal or first-degree family history of breast cancer. The patient had a prior left breast biopsy. PRIOR EXAMS 11/21/2023, 11/12/2022, 11/02/2021, 10/31/2020. MAMMOGRAPHY TECHNIQUE: 2D and 3D (tomosynthesis) digital mammographic views obtained, with additional images as needed for full coverage. Current study was also evaluated with a Computer Aided Detection (CAD) system. DENSITY C. The breasts are heterogeneously dense, which may obscure small masses. MAMMOGRAPHY FINDINGS Bilateral: No suspicious mass, asymmetry, microcalcification, or other abnormality seen. IMPRESSION: * No evidence of malignancy. RECOMMENDATIONS Bilateral * Annual screening mammography. OVERALL ASSESSMENT CATEGORY BI-RADS-1: Negative. The [employer] recommends annual screening mammography beginning at age 40 for women with average risk of breast cancer. ELECTRONICALLY SIGNED: Molly Gaytan M.D. on 11/20/2024 at 10:10:34 PM PT Interpreting Station ID: [id number]
== END ==
PROVIDERS: PCP Family Medicine; Referring Provider Family Medicine; Visit Provider Family Medicine
DX: Z12.31 Encounter for screening mammogram for malignant neoplasm of breast (principal); R92.333 Mammographic heterogeneous density, bilateral breasts
CPT/HCPCS: 77063; 77067

== ENCOUNTER → 2025-01-22 09:32 | Outpatient (CLI) | payer MEDICARE, SELFPAY ==
[2025-01-22 11:10] LABS: Hemoglobin A1C% w Est Avg Glu 6.1 % (4.0-6.0)
[2025-01-22 11:49] LABS: Alanine Aminotransferase 19 IU/L (<35); Albumin 4.3 g/dL (3.5-5.0); Albumin Globulin Ratio 1.4 (1.0-2.8); Alkaline Phosphatase 64 U/L (38-126); Blood Urea Nitrogen 17 mg/dL (7-17); Calcium 9.6 mg/dL (8.4-10.2); Carbon Dioxide 21 mmol/L (22-32); Chloride 107 mmol/L (98-107); Cholesterol 157 mg/dL (140-199); Estimated Glomerular Filt Rate > 60 mL/min (>60); Globulin 3.1 g/dL (1.7-4.1); Glucose 118 mg/dL (70-99); HDL Cholesterol 55 mg/dL (40-60); HEMOLYSIS < 15 (0-50); Potassium 4.4 mmol/L (3.4-5.1); Sodium 138 mmol/L (137-145); Total Protein 7.4 g/dL (6.3-8.2); Triglycerides 89 mg/dL (35-150)
[2025-01-22 14:50] LABS: Appearance Urine UA CLEAR; Bilirubin Urine UA 1+ (NEGATIVE); Color Urine UA YELLOW; Glucose Urine UA NEGATIVE (Negative); Ketones Urine UA TRACE (NEGATIVE); Leukocyte Esterase Urine UA NEGATIVE (NEGATIVE); Nitrite Urine UA NEGATIVE (Negative); Occult Blood Urine UA NEGATIVE (Negative); Protein Urine UA TRACE (Negative); Specific Gravity Urine UA >=1.030 (1.000-1.035); Urobilinogen Urine UA 1.0 E.U./dL (0.2); pH Urine UA 5.5 (4.5-8.0)
[2025-01-22 14:53] LABS: Ictotest Urine Negative (Negative)
[2025-01-22 14:56] LABS: Culture Indicated Urine Cult Not Indicated
[2025-01-25 20:38] LABS: QuantiFERON Mitogen Value >10.00 IU/mL (.); QuantiFERON Nil Value 1.65 IU/mL (.); QuantiFERON TB Gold Plus Negative (Negative); QuantiFERON TB1 Ag Value 1.67 IU/mL (.); QuantiFERON TB2 Ag Value 1.67 IU/mL (.)
== END ==
PROVIDERS: PCP Family Medicine; Referring Provider Family Medicine; Visit Provider Family Medicine
DX: E78.00 Pure hypercholesterolemia, unspecified (principal); R73.9 Hyperglycemia, unspecified; R41.89 Other symptoms and signs involving cognitive functions and awareness; I10 Essential (primary) hypertension; R32 Unspecified urinary incontinence
CPT/HCPCS: 36415; 80053; 80061; 81001; 83036; 86480

== ENCOUNTER → 2025-03-04 13:11 | Outpatient (CLI) | payer MEDICARE, SELFPAY ==
--- NOTE | 2025-03-04 13:13 | DI.CT.S_ITS ---
PROCEDURE: CT ANGIO HEAD AND NECK INDICATIONS: Decreased memory TECHNIQUE: After the administration of intravenous contrast, 1 mm thick sections acquired from the aortic arch through the [place]. 3-dimensional vbojoeu-edcpwfszy-[id number] (MIP) and/or volume rendering reformats were acquired of the central intracranial vasculature and neck separately. For radiation dose reduction, the following was used: automated exposure control, adjustment of mA and/or kV according to patient size. COMPARISON: [facility], CT, CT HEAD/BRAIN WO CON, 05/01/2018, 0:45. FINDINGS: Image quality: Diagnostic. Cerebral CT Angiogram: Internal carotid arteries: No acute findings. Intracranial ICA are patent with no significant stenosis. No occlusion. No aneurysm. Anterior cerebral arteries: Unremarkable. No significant stenosis. No occlusion. No aneurysm. Middle cerebral arteries: Unremarkable. No significant stenosis. No occlusion. No aneurysm. Posterior cerebral arteries: Unremarkable. No significant stenosis. No occlusion. No aneurysm. Basilar artery: Unremarkable. No significant stenosis. No occlusion. No aneurysm. Vertebral arteries: Vertebral arteries are codominant and unremarkable. Dural venous sinuses: Unremarkable given phase of enhancement. Other: Arterial phase appearance of the brain parenchyma is unremarkable. Neck CT Angiogram: Internal carotid arteries: Unremarkable. No significant stenosis. No dissection or occlusion. Common carotid arteries: Unremarkable. No significant stenosis. No dissection or occlusion. External carotid arteries: Unremarkable. No occlusion. Vertebral arteries: Unremarkable. No significant stenosis. No dissection or occlusion. Aortic Arch and Mediastinum: Partially visualized aortic arch unremarkable without evidence of aneurysm. Origins of the great vessels unremarkable. Other: Arterial phase soft tissues of the neck and chest are unremarkable. IMPRESSION: No significant intracranial arterial abnormality is seen. No significant abnormality is seen within the arteries of the neck. Any quantitative measurements of stenosis were performed using NASCET criteria. Dictated by: Clara Walker M.D. on 03/05/2025 at 19:59 Approved by: Clara Walker M.D. on 03/05/2025 at 20:00
--- NOTE | 2025-03-04 13:13 | DI.CT.S_ITS ---
PROCEDURE: CT HEAD/BRAIN WO CON INDICATIONS: memory loss, cognitive impairment TECHNIQUE: Noncontrast 4.5 mm thick angled axial sections acquired from the foramen magnum to the vertex, with coronal and sagittal reformats. For radiation dose reduction, the following was used: automated exposure control, adjustment of mA and/or kV according to patient size. COMPARISON: [facility], CT, CT HEAD/BRAIN WO CON, 05/01/2018, 0:45. [facility], CT, CT ANGIO HEAD AND NECK, 03/04/2025, 14:59. FINDINGS: Image quality: Diagnostic. CSF spaces: Basal cisterns are patent. No extra-axial fluid collections. The ventricles are symmetric in size and shape. Brain: No intracranial bleeds or mass effect. There is cerebral volume loss, with resultant ventricular and sulcal prominence. There are periventricular and deep white matter chronic small vessel ischemic changes. There is intracranial internal carotid artery atherosclerosis. Skull and face: Calvarium and visualized facial bones appear intact, without suspicious lesions. Sinuses: Visualized sinuses and mastoids are clear. IMPRESSION: 1. No acute intracranial process. 2. Moderate atrophy and chronic microvascular ischemic changes. Dictated by: Clara Walker M.D. on 03/05/2025 at 19:58 Approved by: Clara Walker M.D. on 03/05/2025 at 19:59
[2025-03-04 14:14] LABS: Estimated Glomerular Filt Rate > 60 mL/min (>60)
== END ==
LOC: CT 13:13
PROVIDERS: PCP Family Medicine; Referring Provider Family Medicine; Visit Provider Family Medicine
DX: R41.841 Cognitive communication deficit (principal); G70.9 Myoneural disorder, unspecified; R29.898 Other symptoms and signs involving the musculoskeletal system
CPT/HCPCS: 36415; 70450; 70496; 70498; 82565; Q9967